=== PATIENT | female | born 1955 | race Caucasian/White ===

== ENCOUNTER → 2017-02-27 | Outpatient (CLI) | payer OTHER ==
[~2017-02-27] MED LIST: ASCO10003; CALC200S; CHOL100010 PO; GABA800T PO; GADAVIST IV PRN; GLIM1TAB PO; IMP/50 PO; LEVO1TAB PO; LISI5TAB3 PO; METH-1117 PO; METR0.754 TOP; NATA1INJ IV; OXYB15TA12 PO; ROSU5TAB PO; TIZA4CAP PO
--- NOTE | 2017-02-27 11:55 | DIAGNOSTIC IMAGING REPORT ---
BRAIN COMBO FOR MS HISTORY: 61 years-old Female G35 Multiple sclerosis . Patient complains of acute frontal headaches. COMPARISON: Brain MRI 02/28/2016 TECHNIQUE: Multiplanar multisequence MRI of the brain was obtained both with and without the use of 10.5 mL Gadavist. FINDINGS: There is no evidence of restricted diffusion. There is chronic thinning of the corpus callosum. Optic chiasm, brainstem, optic chiasm, pituitary and pineal glands are unremarkable. No cerebellar tonsillar herniation. No acute intracranial hemorrhage, midline shift, abnormal extra-axial collections, hydrocephalus or intracranial mass identified. There is demonstration of multifocal areas of T2/flair prolongation involving the corpus callosum, periventricular and to lesser extent the subcortical white matter of the cerebral hemispheres bilaterally, most of which are oriented in a perpendicular distribution compatible with patient's known history of demyelinating disease. No definite new demyelinating plaques are identified. No infratentorial or brainstem lesions are identified. No enhancing lesions are seen to suggest active demyelination. There is mild cerebral atrophy. Flow voids at the skull base appear patent. 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 Orbits are symmetric. Small right mastoid effusion is noted. There is mild ethmoid sinus disease. IMPRESSION: 1. Stable appearance of the brain with redemonstration of multifocal areas of T2/FLAIR prolongation involving the cerebral hemispheres bilaterally, notably within the periventricular white matter compatible with patient's known history of demyelinating disease. No enhancing plaques are seen to suggest active disease. No infratentorial plaques identified. 2. Mild cerebral atrophy. 3. 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 The above report was generated using voice recognition software. It may contain grammatical, syntax or spelling errors. Electronically signed by: Sha Brock M.D. 02/27/2017 11:53 AM Dictated Date/Time: 02/27/2017 11:42 AM
== END | disposition home or self-care (01) ==
LOC: C.MRIBC 09:46
PROVIDERS: ATTEND Psychiatry & Neurology Neurology
DX: G35 Multiple sclerosis (principal)